=== PATIENT | male | born 1975 | race Native Hawaiian/Other Pacific Islander ===

== ENCOUNTER 2017-10-04 16:08 | Emergency (ER) | payer SELFPAY ==
[~2017-10-04] VITALS: Ht 172.7 cm; Wt 75.0 kg
[2017-10-04 16:10] VITALS: BP 121/66; PULSE 88; RESP 18; TEMP 99.2; O2SAT 99
--- NOTE | 2017-10-04 16:44 | RADRPT ---
EXAM DATE/TIME: 10/04/2017 16:38 [place] COMPARISON: No previous studies available for comparison. INDICATIONS : Chest pain. MEDICAL HISTORY : None. SURGICAL HISTORY : None. ENCOUNTER: Initial ACUITY: 2 days PAIN SCORE: 8/10 LOCATION: Left chest FINDINGS: PA and lateral views of the chest demonstrate the lungs to be symmetrically aerated without evidence of mass, infiltrate or effusion. The cardiomediastinal contours are unremarkable. Osseous structure s are intact. CONCLUSION: No acute disease. Kameron Orozco MD on October 04, 2017 at 16:41 Board Certified Radiologist. This report was verified electronically.
[2017-10-04 18:29] VITALS: BP 131/82; PULSE 75; RESP 20; O2SAT 100
[2017-10-04 18:36] LABS: AUTOMATED NEUTROPHIL # 3.7 TH/MM3 (1.8-7.7); BASOPHIL % 0.5 % (0.0-2.0); EOSINOPHIL # 0.2 TH/MM3 (0-0.4); EOSINOPHIL % 3.7 % (0.0-4.0); HEMATOCRIT 43.8 % (39.0-51.0); HEMOGLOBIN 15.2 GM/DL (13.0-17.0); LYMPH % 31.1 % (9.0-44.0); MEAN CELL VOLUME 88.2 FL (80.0-100.0); MEAN CORPUSCULAR HEMOGLOBIN 30.6 PG (27.0-34.0); MEAN CORPUSCULAR HGB CONC 34.7 % (32.0-36.0); MEAN PLATELET VOLUME 8.7 FL (7.0-11.0); MONO % 6.4 % (0.0-8.0); MONOCYTE # 0.4 TH/MM3 (0-0.9); NEUT % 58.3 % (16.0-70.0); PLATELET COUNT 234 TH/MM3 (150-450); RED BLOOD COUNT 4.97 MIL/MM3 (4.50-5.90); RED CELL DISTRIBUTION WIDTH 12.7 % (11.6-17.2); WHITE BLOOD COUNT 6.4 TH/MM3 (4.0-11.0)
[2017-10-04 18:42] LABS: BICARBONATE 27.4 MEQ/L (21.0-32.0); BLOOD UREA NITROGEN 16 MG/DL (7-18); CALCIUM 8.7 MG/DL (8.5-10.1); CHLORIDE 104 MEQ/L (98-107); CREATININE 1.02 MG/DL (0.60-1.30); GLOMERULAR FILTRATION RATE 80 ML/MIN (>89); GLUCOSE,RANDOM 109 MG/DL (74-106); MAGNESIUM 2.1 MG/DL (1.5-2.5); SODIUM (NA) 141 MEQ/L (136-145)
[2017-10-04 18:46] LABS: TROPONIN I LESS THAN 0.02 NG/ML (0.02-0.05)
[2017-10-04 18:48] LABS: INTERNATIONAL NORMALIZED RATIO 1.1 RATIO; PROTHROMBIN TIME - PATIENT 10.7 SEC (9.8-11.6)
--- NOTE | 2017-10-04 19:25 | PD ---
HPI Chief Complaint: Chest Pain Time Seen by Provider: 18:51 Travel History International Travel<30 days: No Contact w/Intl Traveler<30days: Yes Name of Country Traveled to: [place] Traveled to known affect area: No History of Present Illness HPI 42-year-old male presents to the ED for evaluation of less than 24 hour history of chest pain. Onset at rest yesterday morning. Patient endorses 2-3 episodes lasting ~1 minute each. He denies associated shortness of breath, diaphoresis, nausea, vomiting, palpitations, recent history of cold or flu symptoms, significant medical history, family history of cardiac disease, history of DVT. He is a lifelong non-smoker. He is visiting from [place] and endorses a long flight a few weeks ago. He states that this chest pain is resolved on presentation. PFSH Past Surgical History Appendectomy: Yes Social History Alcohol Use: Yes Tobacco Use: No Substance Use: No Allergies-Medications (Allergen,Severity, Reaction): Coded Allergies: ibuprofen (Verified Allergy, Severe, swelling, 10/04/17) Reported Meds & Prescriptions Reported Meds & Active Scripts Active No Active Prescriptions or Reported Medications Review of Systems Except as stated in HPI: all other systems reviewed are Neg Physical Exam Narrative GENERAL: Well-nourished, well-developed pleasant [place] male in no acute distress.. SKIN: Focused skin assessment warm/dry. HEAD: Normocephalic. EYES: No scleral icterus. No injection or drainage. NECK: Supple, trachea midline. No JVD or lymphadenopathy. CARDIOVASCULAR: Regular rate and rhythm without murmurs, gallops, or rubs. CHEST: Nontender throughout without deformity or crepitus. No retractions. RESPIRATORY: Breath sounds clear and equal bilaterally. No accessory muscle use. GASTROINTESTINAL: Abdomen soft, non-tender, nondistended. MUSCULOSKELETAL: No cyanosis, or edema. Negative Homans sign bilaterally. BACK: Nontender without obvious deformity. No CVA tenderness. Data Data Last Documented VS Vital Signs Date Time Temp Pulse Resp B/P (MAP) Pulse Ox O2 Delivery O2 Flow Rate FiO2 10/04/17 18:29 75 20 131/82 (98) 100 Room Air 10/04/17 16:10 99.2 Orders Orders Electrocardiogram (10/04/17 16:25) Basic Metabolic Panel (Bmp) (10/04/17 16:25) Ckmb (Isoenzyme) Profile (10/04/17 16:25) Complete Blood Count With Diff (10/04/17 16:25) Magnesium (Mg) (10/04/17 16:25) Prothrombin Time / Inr (Pt) (10/04/17 16:25) Act Partial Throm Time (Ptt) (10/04/17 16:25) Troponin I (10/04/17 16:25) Chest, Pa & Lat (10/04/17 16:25) CKMB (10/04/17 16:59) CKMB% (10/04/17 16:59) Labs Laboratory Tests Test 10/04/17 16:59 White Blood Count 6.4 TH/MM3 Red Blood Count 4.97 MIL/MM3 Hemoglobin 15.2 GM/DL Hematocrit 43.8 % Mean Corpuscular Volume 88.2 FL Mean Corpuscular Hemoglobin 30.6 PG Mean Corpuscular Hemoglobin Concent 34.7 % Red Cell Distribution Width 12.7 % Platelet Count 234 TH/MM3 Mean Platelet Volume 8.7 FL Neutrophils (%) (Auto) 58.3 % Lymphocytes (%) (Auto) 31.1 % Monocytes (%) (Auto) 6.4 % Eosinophils (%) (Auto) 3.7 % Basophils (%) (Auto) 0.5 % Neutrophils # (Auto) 3.7 TH/MM3 Lymphocytes # (Auto) 2.0 TH/MM3 Monocytes # (Auto) 0.4 TH/MM3 Eosinophils # (Auto) 0.2 TH/MM3 Basophils # (Auto) 0.0 TH/MM3 CBC Comment DIFF FINAL Differential Comment Prothrombin Time 10.7 SEC Prothromb Time International Ratio 1.1 RATIO Activated Partial Thromboplast Time 25.3 SEC Blood Urea Nitrogen 16 MG/DL Creatinine 1.02 MG/DL Random Glucose 109 MG/DL Calcium Level 8.7 MG/DL Magnesium Level 2.1 MG/DL Sodium Level 141 MEQ/L Potassium Level 3.9 MEQ/L Chloride Level 104 MEQ/L Carbon Dioxide Level 27.4 MEQ/L Anion Gap 10 MEQ/L Estimat Glomerular Filtration Rate 80 ML/MIN Total Creatine Kinase 145 U/L Creatine Kinase MB 1.3 NG/ML Troponin I LESS THAN 0.02 NG/ML MDM Medical Decision Making Medical Screen Exam Complete: Yes Emergency Medical Condition: Yes Differential Diagnosis Noncardiac chest pain versus ACS versus pulmonary embolism versus pneumonia versus other Narrative Course 42-year-old male presents to the ED for evaluation of less than 24 hour history of episodic chest pain. Onset at rest, lasting approximately 1 minute before resolving spontaneously. He denies associated SOB, diaphoresis, N/V, palpitations, recent history of cold or flu symptoms, significant medical history, family history of cardiac disease, history of DVT. He is a lifelong non-smoker. He is visiting from [facility] and endorses a long flight a few weeks ago. He states that this chest pain is resolved on presentation. Patient afebrile, pulse 88, respiratory rate 18, O2 99% on room air on presentation. Patient is afebrile, pulse 88, respiratory rate 18, O2 sats 99% on room air on presentation. Physical exam reveals a very healthy-appearing [place] male in no acute distress. Chest CTAB. No reproducible pain over the precordium. No lower extremity edema. Homans sign negative bilaterally. PERC rule negative for DVT. EKG rate 76, sinus rhythm. VA interval 137, QRS 98, QTC 377. RSR in V1. No acute ST changes. Reviewed by Dr. Sonido Palumbo. Cardiac enzymes negative 1.' CXR: No acute disease per radiology read CBC: Unremarkable INR 1.1. CMP: no concerning abnormalities Given the patient's history along with his presentation I have a very low suspicion for cardiac origin of the patient's chest pain. He states that he plans to return to [facility] in the next week. He does have a primary care there. He is provided a copy of the lab work, EKG and CXR to present to his physician upon return home. I discussed reasons to return to the ED and encouraged him to come back should symptoms recur. He indicated understanding of the instructions and is agreeable to the care plan. The patient is stable and discharged home. The history was gathered with the help of the patient's friend who is at bedside. Patient refused formal translation services that were offered. Diagnosis Primary Impression: Chest pain in adult Referrals: Primary Care Physician Patient Instructions: Chest Pain (ED), General Instructions Additional Instructions: Rest, hydrate. Return to normal, gentle activities as tolerated. Follow-up with your primary care provider upon return home. Return to the ED IMMEDIATELY should symptoms recur. Scripts No Active Prescriptions or Reported Meds Disposition: DISCHARGE HOME Condition: Stable Nahomi Sanchez Oct 04, 2017 19:25
--- NOTE | 2017-10-06 00:56 | EKG ---
Date Performed: 10/04/2017 Time Performed: 16:56:54 PTAGE: 42 years EKG: Sinus rhythm POSSIBLE RIGHT VENTRICULAR CONDUCTION DELAY BORDERLINE ECG NO PREVIOUS TRACING DOCTOR: Vamsi Castro Interpretating Date/Time 10/06/2017 00:55:37
== END 2017-10-04 20:48 | disposition home or self-care (01) ==
LOC: NEPE 16:08
DX: R07.9 Chest pain, unspecified (principal); R94.31 Abnormal electrocardiogram [ECG] [EKG]; Z88.6 Allergy status to analgesic agent
CPT/HCPCS: 71046; 80048; 82550; 82552; 83735; 84484; 85025; 85610; 85730; 93005; 99285